=== PATIENT | female | born 1970 | race Hispanic/Latino ===

== ENCOUNTER 2017-02-11 20:25 | Emergency (ER) | payer OTHER ==
[~2017-02-11] VITALS: Ht 165.1 cm; Wt 65.0 kg
[~2017-02-11 20:25] MED LIST: LORTAB5 PO; NO HOME MEDS
[2017-02-11] MEDS ORDERED: ORPHENADRINE100 MG PO (23:05)
[2017-02-11] MEDS ORDERED: PERCOCET 5/325M1 TAB PO (23:05)
[2017-02-11 23:19] VITALS: BP 152/82
== END 2017-02-11 23:15 | disposition home or self-care (01) | DRG 552 ==
LOC: ED 20:25
DX: S16.1XXA Strain of muscle, fascia and tendon at neck level, initial encounter (principal); V89.2XXA Person injured in unspecified motor-vehicle accident, traffic, initial encounter; Y92.413 State road as the place of occurrence of the external cause

== ENCOUNTER 2017-06-19 12:18 | Emergency (ER) | payer OTHER ==
[~2017-06-19] VITALS: Ht 165.1 cm; Wt 70.0 kg
[~2017-06-19 12:18] MED LIST changes: +ORPHENADRINE100 MG PO; +PERCOCET 5/325M1 TAB PO
[2017-06-19 13:08] LABS: HEMATOCRIT 39.6 % (37.0-47.0); HEMOGLOBIN 13.3 g/dl (12.0-16.0); IMMATURE GRANULOCYTES 0.3 % (0.0-1.0); MEAN CELL VOLUME 85.9 fL CALC (80.0-100.0); MEAN CORPUSCULAR HGB 28.9 pG CALC (26.0-32.0); MEAN CORPUSCULAR HGB CONC 33.6 g/L CALC (32.0-36.0); NEUT# 5.19 thou/uL (2.00-7.15); RED BLOOD COUNT 4.61 mill/uL (4.20-5.60); RED CELL DISTRI WIDTH 13.2 % (11.5-15.5)
[2017-06-19 13:24] LABS: ALBUMIN 4.7 g/dL (3.2-5.0); ALKALINE PHOSPHATASE 58 u/l (38-126); ANION GAP 18 (6-22 (CALC)); BILIRUBIN, TOTAL 0.9 mg/dL (0.0-1.4); BUN 12 mg/dL (7-17); BUN/CREATININE RATIO 22 (12-20 (CALC)); CARBON DIOXIDE 22 mmol/l (22-30); CHLORIDE 104 mmol/l (95-108); CREATININE 0.6 mg/dL (0.5-1.0); GFR > 60 ML/MIN (>=60 (CALC)); GFR FOR AFR.AMER. > 60 ML/MIN (>=60 (CALC)); LIPASE 60 u/l (23-300); POTASSIUM 3.9 mmol/l (3.5-5.1); SGOT/AST 27 u/l (14-36); SGPT/ALT 35 u/l (9-52); SODIUM 140 mmol/l (137-146); TOTAL PROTEIN 7.9 g/dL (6.3-8.2)
[2017-06-19 18:09] LABS: URINE BILIRUBIN - DIPSTICK NEGATIVE (NEGATIVE); URINE BLOOD DIPSTICK SMALL (NEGATIVE); URINE COLOR YELLOW; URINE GLUCOSE - DIPSTICK NEGATIVE (NEGATIVE); URINE KETONE NEGATIVE (NEGATIVE); URINE NITRITE - DIPSTICK NEGATIVE (Negative); URINE PROTEIN - DIPSTICK NEGATIVE (NEG-TRACE); URINE UROBILINOGEN - DIPSTICK 0.2 E.U./dL (0.2)
[2017-06-19 18:12] LABS: URINE CLARITY TURBID; URINE LEUK ESTERASE SMALL (NEGATIVE)
[2017-06-19 18:21] LABS: URINE BACTERIA FEW hpf; URINE SQUAMOUS EPITHELIAL CELL FEW EPI/hpf (0-FEW)
[2017-06-19] MEDS ORDERED: CEPHALEXIN500 MG PO (19:12)
[2017-06-19 19:31] VITALS: BP 160/78
== END 2017-06-19 19:25 | disposition home or self-care (01) | DRG 690 ==
LOC: ED 12:18
PROVIDERS: Family Medicine
DX: N39.0 Urinary tract infection, site not specified (principal); G89.29 Other chronic pain; M54.9 Dorsalgia, unspecified
CPT/HCPCS: Q9967

== ENCOUNTER 2017-07-23 11:35 | Emergency (ER) | payer SELFPAY ==
[~2017-07-23] VITALS: Ht 165.1 cm; Wt 68.0 kg
[~2017-07-23 11:35] MED LIST changes: +CEPHALEXIN500 MG PO
[2017-07-23 12:12] LABS: HEMATOCRIT 37.9 % (37.0-47.0); HEMOGLOBIN 12.6 g/dl (12.0-16.0); IMMATURE GRANULOCYTES 0.4 % (0.0-1.0); MEAN CELL VOLUME 88.6 fL CALC (80.0-100.0); MEAN CORPUSCULAR HGB 29.4 pG CALC (26.0-32.0); MEAN CORPUSCULAR HGB CONC 33.2 g/L CALC (32.0-36.0); NEUT# 2.34 thou/uL (2.00-7.15); RED BLOOD COUNT 4.28 mill/uL (4.20-5.60); RED CELL DISTRI WIDTH 14.1 % (11.5-15.5)
[2017-07-23 12:38] LABS: ANION GAP 13 (6-22 (CALC)); BUN 8 mg/dL (7-17); BUN/CREATININE RATIO 14 (12-20 (CALC)); CARBON DIOXIDE 27 mmol/l (22-30); CHLORIDE 105 mmol/l (95-108); CREATININE 0.6 mg/dL (0.5-1.0); GFR > 60 ML/MIN (>=60 (CALC)); GFR FOR AFR.AMER. > 60 ML/MIN (>=60 (CALC)); POTASSIUM 3.8 mmol/l (3.5-5.1); SODIUM 142 mmol/l (137-146)
[2017-07-23 15:32] VITALS: BP 144/82
== END 2017-07-23 15:31 | disposition home or self-care (01) | DRG 313 ==
LOC: ED 11:35
PROVIDERS: Family Medicine
DX: R07.89 Other chest pain (principal); R06.02 Shortness of breath

== ENCOUNTER 2019-12-16 13:17 | Emergency (ER) | payer BC ==
[~2019-12-16] VITALS: Ht 165.1 cm; Wt 68.2 kg
[2019-12-16 13:47] LABS: HEMATOCRIT 40.7 % (37.0-47.0); HEMOGLOBIN 13.3 g/dl (12.0-16.0); IMMATURE GRANULOCYTES 0.4 % (0.0-5.0); MEAN CELL VOLUME 88.1 fL CALC (80.0-100.0); MEAN CORPUSCULAR HGB 28.8 pG CALC (26.0-32.0); MEAN CORPUSCULAR HGB CONC 32.7 g/dL CAL (32.0-36.0); NEUT# 1.86 thou/uL (2.00-7.15); RED BLOOD COUNT 4.62 mill/uL (4.20-5.60); RED CELL DISTRI WIDTH 13.1 % (11.5-15.5)
[2019-12-16 13:56] LABS: ANION GAP 10 (6-22 (CALC)); BUN 14 mg/dL (7-17); BUN/CREATININE RATIO 21 (12-20 (CALC)); CARBON DIOXIDE 27 mmol/l (22-30); CHLORIDE 103 mmol/l (95-108); CREATININE 0.6 mg/dL (0.5-1.0); GFR > 60 ML/MIN (>=60 (CALC)); GFR FOR AFR.AMER. > 60 ML/MIN (>=60 (CALC)); SODIUM 136 mmol/l (137-146)
[2019-12-16 17:51] VITALS: BP 137/71
== END 2019-12-16 17:50 | disposition home or self-care (01) | DRG 313 ==
LOC: ED 13:17
PROVIDERS: Family Medicine
DX: R07.9 Chest pain, unspecified (principal); R42 Dizziness and giddiness; R23.3 Spontaneous ecchymoses; Z86.19 Personal history of other infectious and parasitic diseases

== ENCOUNTER 2020-05-22 10:11 | Observation (INO) | payer SELFPAY ==
[~2020-05-22] VITALS: Ht 165.1 cm; Wt 68.5 kg
--- NOTE | 2020-05-22 10:15 | NUR ---
TO ROOM VIA WHEELCHAIR FOR BEDSIDE TRIAGE.
[2020-05-22 11:05] LABS: HEMATOCRIT 41.4 % (37.0-47.0); HEMOGLOBIN 13.6 g/dl (12.0-16.0); IMMATURE GRANULOCYTES 0.2 % (0.0-5.0); MEAN CELL VOLUME 86.8 fL CALC (80.0-100.0); MEAN CORPUSCULAR HGB 28.5 pG CALC (26.0-32.0); MEAN CORPUSCULAR HGB CONC 32.9 g/dL CAL (32.0-36.0); NEUT# 1.97 thou/uL (2.00-7.15); RED BLOOD COUNT 4.77 mill/uL (4.20-5.60)
--- NOTE | 2020-05-22 11:12 | NUR ---
PT RESTING IN BED. STABLE ON MONITOR. CALL LIGHT WITHIN REACH. CONTINUING TO MONITOR.
[2020-05-22 11:17] LABS: ALBUMIN 4.5 g/dL (3.2-5.0); ALKALINE PHOSPHATASE 53 u/l (38-126); AMYLASE 46 u/l (30-110); ANION GAP 10 (6-22 (CALC)); BILIRUBIN, TOTAL 0.8 mg/dL (0.0-1.4); BUN 11 mg/dL (7-17); BUN/CREATININE RATIO 21 (12-20 (CALC)); CARBON DIOXIDE 28 mmol/l (22-30); CHLORIDE 106 mmol/l (95-108); CREATININE 0.5 mg/dL (0.5-1.0); GFR > 60 ML/MIN (>=60 (CALC)); GFR FOR AFR.AMER. > 60 ML/MIN (>=60 (CALC)); LIPASE 86 u/l (23-300); POTASSIUM 4.1 mmol/l (3.5-5.1); SGOT/AST 30 u/l (14-36); SODIUM 139 mmol/l (137-146); TOTAL PROTEIN 7.7 g/dL (6.3-8.2)
[2020-05-22 11:29] LABS: MYOGLOBIN 30 ng/mL (0 - 62)
--- NOTE | 2020-05-22 13:00 | NUR ---
PT RESTING. NO DISTRESS. STABLE ON MONITOR. NO COMPLAINTS OR CONCERNS AT THIS TIME.
--- NOTE | 2020-05-22 13:42 | NUR ---
REPORT CALLED AND GIVEN TO ZURDO CRAVEN. PT ADMITTED TO [id number]
[2020-05-22 13:58] VITALS: BP 141/65
--- NOTE | 2020-05-22 14:30 | NUR ---
PT ARRIVES TO ROOM 261 VIA WHEELCHAIR FROM ER ACCOMPANIED BY INÉS RENNER. PT IS ALERT AND ORIENTED X 3, LUNGS CLEAR, ABDOMEN BENIGN, PALPABLE PULSES TO ALL EXTREMITIES. PT DOES SAY THAT SHE HAS CHEST DISCOMFORT FROM LUQ TO NECK. PT ABLE TO ANSWER ALL ASSESSMENT QUESTIONS WITHOUT DIFFICULTY. SHE IS MAINLY [place] BUT DOES FAIR WITH [employer].
[2020-05-22 15:20] VITALS: BP 111/47
--- NOTE | 2020-05-22 16:38 | NUR ---
PT CONTINUES TO REST IN THE BED WITHOUT COMPLAINT OR EVIDENCE OF DISTRESS. PT OFFERED TYLENOL FOR DISCOMFORT, BUT DID NOT WANT IT.
[2020-05-22 18:48] VITALS: BP 115/68
--- NOTE | 2020-05-22 19:56 | NUR ---
PATIENT RESTING IN BED AT THIS TIME-AWAKE ALERT AND ORIENTEDX3. PATIENT WITH NO COMPLAINTS AT THIS TIME-DENIES ANY CHEST PAIN, SOB OR PALPATATIONS. TELE MONITOR IN PLACE. SALINE LOCK TO RAC INTACT AND FLUSHED WITH GOOD BLOOD RETURN. LUNGS ARE CLEAR. ABD IS SOFT. PATIENT STATES THAT SHE HAD BM YESTERDAY AND DENIES ANY DIFFICUOLTY WITH URINATION. NO PERIPHERAL EDEMA NOTED AND PULSES ARE PALPABLE. SAFETY PRECAUTIONS REINFORCED. CALL LIGHT IN REACH. WILL CONT TO MONITOR.
[2020-05-23 00:07] VITALS: BP 107/66
--- NOTE | 2020-05-23 00:16 | NUR ---
PATIENT RESTING IN BED-TROP DRAWN ORDERED. NO COMPLAOINTS AT THIS TIME. TELE MONITOR IN PLACE. CALL LIGHT IN REACH. WILL CONT TO ESTER.
[2020-05-23 04:23] VITALS: BP 109/70
--- NOTE | 2020-05-23 04:50 | NUR ---
PATIENT RESTING IN BED AT THIS TIME-APPEARS SLEEPING AT THIS TIME. EYES ARE CLOSED. RESPS ARE EVEN AND UNLABORED. TELE MONITOR IN PLACE. CALL LIGHT IN REACH. WILL CONT TO MONITOR.
[2020-05-23 06:29] LABS: HEMATOCRIT 43.8 % (37.0-47.0); HEMOGLOBIN 13.8 g/dl (12.0-16.0); IMMATURE GRANULOCYTES 0.2 % (0.0-5.0); MEAN CELL VOLUME 88.1 fL CALC (80.0-100.0); MEAN CORPUSCULAR HGB 27.8 pG CALC (26.0-32.0); MEAN CORPUSCULAR HGB CONC 31.5 g/dL CAL (32.0-36.0); NEUT# 1.58 thou/uL (2.00-7.15); RED BLOOD COUNT 4.97 mill/uL (4.20-5.60); RED CELL DISTRI WIDTH 13.2 % (11.5-15.5)
[2020-05-23 06:56] LABS: MAGNESIUM 1.9 mg/dL (1.6-2.3)
[2020-05-23 07:10] VITALS: BP 110/69
--- NOTE | 2020-05-23 07:10 | NUR ---
PT LAYING IN BED WATCHING TV. A&O X3. NO DISTRESS NOTED. PT DENIES ANY CP AT THIS TIME. FEED AND FARM MANAGEMENT ADVISER IN PLACE. #20 RAC PATENT AND HEALTHY, FLUSHED WITH EASE. PT AGREEABLE TO FLU VACCINE. ASSESSMENT COMPLETED. DISCUSSED POC. CALL LIGHT IN REACH. CONTINUE TO MONITOR.
--- NOTE | 2020-05-23 08:22 | NUR ---
DR PEREZ AND Bradford NICOLE [employer] CASE OPERATOR AT BEDSIDE DISCUSSING POC
[2020-05-23] MEDS ORDERED: ADLT ASA LOW81 MG PO (09:40)
[2020-05-23] MEDS ORDERED: CYCLOBENZAPR5 MG PO (09:40)
[2020-05-23 11:24] VITALS: BP 100/74
--- NOTE | 2020-05-23 11:59 | NUR ---
PT SITTING IN BED EATING LUNCH. NO DISTRESS NOTED. CALL LIGHT IN REACH. CONTINUE TO MONITOR.
--- NOTE | 2020-05-23 13:13 | NUR ---
D/C INSTRUCTIONS GIVEN TO PT. IV INTACT UPON REMOVAL
--- NOTE | 2020-05-23 13:16 | NUR ---
Discharge instructions given. Patient verbalizes understanding of same. Discharged in stable condition via Wheelchair to Home with staff. All belongings sent with pt.
== END 2020-05-23 13:16 | disposition home or self-care (01) | DRG 313 ==
LOC: ED 10:11 → ED-I 12:04 → ED 12:26 → MS2 12:27
PROVIDERS: Emergency Medicine; Nurse Practitioner; ADMIT Internal Medicine; ATTEND Internal Medicine
DX: R07.89 Other chest pain (principal); M54.9 Dorsalgia, unspecified; G89.29 Other chronic pain; Z23 Encounter for immunization; Z20.822 Contact with and (suspected) exposure to COVID-19
CPT/HCPCS: G0378; J1650; S0164

== ENCOUNTER 2021-01-12 19:45 | Emergency (ER) | payer SELFPAY ==
[~2021-01-12] VITALS: Ht 165.1 cm; Wt 65.0 kg
[~2021-01-12 19:45] MED LIST changes: +ADLT ASA LOW81 MG PO; +CYCLOBENZAPR5 MG PO
[2021-01-12 21:23] LABS: HEMATOCRIT 40.3 % (37.0-47.0); HEMOGLOBIN 13.1 g/dl (12.0-16.0); IMMATURE GRANULOCYTES 0.1 % (0.0-5.0); MEAN CELL VOLUME 93.1 fL CALC (80.0-100.0); MEAN CORPUSCULAR HGB 30.3 pG CALC (26.0-32.0); MEAN CORPUSCULAR HGB CONC 32.5 g/dL CAL (32.0-36.0); NEUT# 5.26 thou/uL (2.00-7.15); RED BLOOD COUNT 4.33 mill/uL (4.20-5.60)
[2021-01-12 21:34] LABS: ALBUMIN 4.2 g/dL (3.2-5.0); ALKALINE PHOSPHATASE 42 u/l (38-126); ANION GAP 10 (6-22 (CALC)); BUN 11 mg/dL (7-17); BUN/CREATININE RATIO 20 (12-20 (CALC)); CARBON DIOXIDE 27 mmol/l (22-30); CHLORIDE 104 mmol/l (95-108); CREATININE 0.6 mg/dL (0.5-1.0); GFR > 60 ML/MIN (>=60 (CALC)); GFR FOR AFR.AMER. > 60 ML/MIN (>=60 (CALC)); POTASSIUM 3.4 mmol/l (3.5-5.1); SGOT/AST 29 u/l (14-36); SODIUM 137 mmol/l (137-146); TOTAL PROTEIN 7.6 g/dL (6.3-8.2)
[2021-01-12 21:37] LABS: BILIRUBIN, TOTAL 0.4 mg/dL (0.0-1.4)
[2021-01-12 22:20] LABS: URINE BILIRUBIN - DIPSTICK NEGATIVE (NEGATIVE); URINE BLOOD DIPSTICK LARGE (NEGATIVE); URINE COLOR YELLOW; URINE GLUCOSE - DIPSTICK NEGATIVE (NEGATIVE); URINE KETONE NEGATIVE (NEGATIVE); URINE LEUK ESTERASE NEGATIVE (NEGATIVE); URINE PH 7.5 (4.5-8.0); URINE PROTEIN - DIPSTICK NEGATIVE (NEG-TRACE); URINE UROBILINOGEN - DIPSTICK 0.2 E.U./dL (0.2)
[2021-01-12 22:25] LABS: URINE NITRITE - DIPSTICK NEGATIVE (Negative)
[2021-01-12 22:33] LABS: URINE RBC 50-100 RBC/hpf (0-5); URINE SQUAMOUS EPITHELIAL CELL FEW EPI/hpf (0-FEW); URINE WBC 0-2 WBC/hpf (0-5)
[2021-01-12 23:55] VITALS: BP 140/64
== END 2021-01-12 23:55 | disposition home or self-care (01) | DRG 103 ==
LOC: ED 19:45
PROVIDERS: Family Medicine
DX: R51.9 Headache, unspecified (principal); T50.B95A Adverse effect of other viral vaccines, initial encounter; R31.9 Hematuria, unspecified

== ENCOUNTER 2021-10-08 09:10 | Day surgery (SDC) | payer SELFPAY ==
[~2021-10-08] VITALS: Ht 165.2 cm; Wt 69.9 kg
[~2021-10-08 09:10] MED LIST changes: +QC ASPIRIN LOW81 M1
[2021-10-08 11:00] VITALS: BP 117/70
== END 2021-10-08 11:10 | disposition home or self-care (01) | DRG 951 ==
LOC: ORM 09:10
PROVIDERS: ATTEND Surgery
PROC: 0DJD8ZZ Inspection of Lower Intestinal Tract, Via Natural or Artificial Opening Endoscopic (ICD-10-PCS; principal; 2021-10-08)
DX: Z12.11 Encounter for screening for malignant neoplasm of colon (principal)

== ENCOUNTER 2022-02-20 23:50 | Emergency (ER) | payer SELFPAY ==
[~2022-02-20] VITALS: Ht 165.1 cm; Wt 68.0 kg
[2022-02-20 23:58] VITALS: BP 166/85
[2022-02-21] VITALS (10 sets, daily range): BP systolic 121–172; BP diastolic 69–98
[2022-02-21 00:37] LABS: HEMATOCRIT 40.7 % (37.0-47.0); HEMOGLOBIN 13.7 g/dl (12.0-16.0); IMMATURE GRANULOCYTES 0.1 % (0.0-5.0); MEAN CORPUSCULAR HGB 29.1 pG CALC (26.0-32.0); MEAN CORPUSCULAR HGB CONC 33.7 g/dL CAL (32.0-36.0); NEUT# 2.14 thou/uL (2.00-7.15); RED BLOOD COUNT 4.7 mill/uL (4.20-5.60); RED CELL DISTRI WIDTH 12.4 % (11.5-15.5)
[2022-02-21 00:43] LABS: MEAN CELL VOLUME 86.6 fL CALC (80.0-100.0)
[2022-02-21 00:51] LABS: ALBUMIN 4.6 g/dL (3.2-5.0); ALKALINE PHOSPHATASE 54 u/l (38-126); ANION GAP 15 (6-22 (CALC)); BUN 12 mg/dL (7-17); BUN/CREATININE RATIO 22 (12-20 (CALC)); CARBON DIOXIDE 26 mmol/l (22-30); CHLORIDE 103 mmol/l (95-108); CREATININE 0.6 mg/dL (0.5-1.0); GFR FOR AFR.AMER. > 60 ML/MIN (>=60 (CALC)); GFR OTHER RACES > 60 ML/MIN (>=60 (CALC)); LIPASE 106 u/l (23-300); POTASSIUM 3.2 mmol/l (3.5-5.1); SGOT/AST 34 u/l (14-36); SODIUM 142 mmol/l (137-146)
[2022-02-21 00:52] LABS: BILIRUBIN, TOTAL 0.7 mg/dL (0.0-1.4)
[2022-02-21 01:04] LABS: URINE BILIRUBIN - DIPSTICK NEGATIVE (NEGATIVE); URINE BLOOD DIPSTICK NEGATIVE (NEGATIVE); URINE COLOR YELLOW; URINE GLUCOSE - DIPSTICK 100 mg/dL (NEGATIVE); URINE KETONE NEGATIVE (NEGATIVE); URINE LEUK ESTERASE NEGATIVE (NEGATIVE); URINE PH 6.5 (4.5-8.0); URINE PROTEIN - DIPSTICK NEGATIVE (NEG-TRACE); URINE SPECIFIC GRAVITY 1.015; URINE UROBILINOGEN - DIPSTICK 0.2 E.U./dL (0.2)
[2022-02-21 01:07] LABS: URINE NITRITE - DIPSTICK NEGATIVE (Negative)
[2022-02-21] MEDS ORDERED: PROMETHAZINE HY25 M1 PO (02:29)
== END 2022-02-21 02:46 | disposition home or self-care (01) | DRG 392 ==
LOC: ED 23:50
PROVIDERS: Family Medicine
DX: A08.4 Viral intestinal infection, unspecified (principal); Z20.822 Contact with and (suspected) exposure to COVID-19
CPT/HCPCS: Q9967